=== PATIENT | male | born 1960 | race Caucasian/White ===

== ENCOUNTER → 2017-07-04 | Outpatient (CLI) | payer OTHER ==
--- NOTE | 2017-07-04 11:32 | CT ---
EXAMINATION TYPE: CT abdomen pelvis wo con DATE OF EXAM: 07/04/2017 HISTORY: Pre OP surgery for tissue removal per patient. Hematuria and flank pain per order. CT DLP: 2623.3 mGycm. Automated Exposure Control for Dose Reduction was Utilized. TECHNIQUE: CT scan of the abdomen and pelvis is performed without oral or IV contrast. COMPARISON: NONE FINDINGS: Within the limitations of a non-contrast study, the following observations are made. LUNG BASES: There is calcified 1.1 cm nodule or granuloma posteriorly in the left lung base. There is some calcification at level of aortic and mitral valve leaflets. LIVER/GB: Colonic interposition anterior to the liver is noted. PANCREAS: No significant abnormality is seen. SPLEEN: There are some scattered calcifications throughout the spleen, findings consistent with produ ct of old granulomatous disease. ADRENALS: Low dense nodular thickening to both adrenal glands favors benign hyperplasia KIDNEYS: There are 3-4 scattered calculi throughout left kidney measuring 3 mm or smaller in size. No hydronephrosis or obstructing left ureter calculi are clearly seen. No right-sided renal calculi or hydronephrosis is present. No intraluminal calculi and bladder are seen. Calcifications along course of the vas deferens bilaterally is noted. There is mild perinephric fat stranding in both kidneys pablo aterally, this is nonspecific finding and most likely on basis of product of chronic medical renal di sease in patient this age. BOWEL: There is some redundancy of the sigmoid colon. There is no suspicious small or large bowel dil atation. There is wondering cecum identified anteriorly right midabdomen near axial image [address] ileum felt present seen best on coronal image 40. No inflammatory change at base of cecum is cl early identified. GENITAL ORGANS: No gross abnormality seen. LYMPH NODES: No greater than 1cm abdominal or pelvic lymph nodes are appreciated. OSSEOUS STRUCTURES: Spine is straightened. There is fairly moderate multilevel spurring in the visual ized spine. OTHER: No significant additional abnormality is seen. IMPRESSION: Small left-sided renal calculi. No hydronephrosis or obstructing renal calculi are clearl y seen bilaterally. Wondering cecum noted without bowel obstruction or suspicious dilatation.
[2017-07-04 11:47] LABS: HCT 42.1 % (39.0-53.0); HGB 13.8 gm/dL (13.0-17.5); MCHC 32.7 g/dL (31.0-37.0); MCV 91.6 fL (80.0-100.0); Mean Platelet Volume 6.5; Platelet Count 250 k/uL (150-450); RDW 13.6 % (11.5-15.5); WBC 6.7 k/uL (3.8-10.6)
[2017-07-04 12:24] LABS: ALT 29 U/L (21-72); AST 24 U/L (17-59); Albumin 3.8 g/dL (3.5-5.0); Alkaline Phosphatase 84 U/L (38-126); Anion Gap 11 mmol/L; Blood Urea Nitrogen 27 mg/dL (9-20); Calcium 9.5 mg/dL (8.4-10.2); Carbon Dioxide 27 mmol/L (22-30); Chloride 106 mmol/L (98-107); Cholesterol 135 mg/dL (<200); Glucose 136 mg/dL (74-99); HDL Cholesterol 39 mg/dL (40-60); LDL Cholesterol,Calculated 59 mg/dL (0-99); Magnesium 2.1 mg/dL (1.6-2.3); Potassium 4.7 mmol/L (3.5-5.1); Sodium 144 mmol/L (137-145); Total Bilirubin 0.3 mg/dL (0.2-1.3); Total Protein 6.6 g/dL (6.3-8.2); Triglycerides 183 mg/dL (<150)
[2017-07-04 12:31] LABS: INR 0.9 (<1.2); Prothrombin Time 9.4 sec (9.0-12.0)
[2017-07-04 12:32] LABS: Partial Thromboplastin Time 20.5 sec (22.0-30.0)
[2017-07-04 12:40] VITALS: BP 129/77; PULSE 83; TEMP 98.5; BMI 43.0
[2017-07-04 16:47] LABS: Parathyroid Hormone Intact 44.6 pg/mL (14.0-72.0)
[2017-07-04 17:06] LABS: Iron Saturation 23.14 (15.00-50.00)
[2017-07-04 17:15] LABS: Vitamin D 25 Hydroxy 48.7 ng/mL (30.0-100.0)
[2017-07-04 17:41] LABS: Folate, Serum 16.1 ng/mL
[2017-07-04 19:11] LABS: Hemoglobin A1C 5.9 % (4.0-6.0)
[2017-07-05 12:50] LABS: Zinc, Serum 76 ug/dL (60-130)
[2017-07-08 06:08] LABS: Vitamin A 75 ug/dL (38-106)
[2017-07-08 06:16] LABS: Vitamin B1 68 ug/L (38-122)
[2017-07-09 19:54] LABS: Selenium 148 mcg/L (63-160)
--- NOTE | 2017-07-21 20:29 | P.HPBAR ---
Bariatric H&P - History & Physicial H&P Date: 07/04/17 History & Physicial: Visit/CC: Patient initial contact: Initial weight: Initial weight in pounds: Height: Initial BMI: Last weight: Current weight: Current weight in pounds: Current BMI: [place] body weight (based on NIH guidelines): Excess body weight loss: The patient is a 56 year-old M who presents for Bariatric Assessment. DATE OF SERVICE: 07/04/2017 REASON FOR CONSULTATION: Panniculectomy HISTORY OF PRESENT ILLNESS: Moustapha Dawkins is a 57-year-old male who comes in with long-standing morbid obesity. He had a sleeve gastrectomy April 03, 2016 in [place], [place]. His highest weight was 529 pounds. His lowest weight was 287 pounds. He now comes in 304 pounds. He has gained 17 pounds. He is more than 1 year out. He comes in with problems of his pannus. His pannus reaches beyond his knees. He reports severe lower back pain and multiple chronic severe ulcerations from his pannus to groin and thighs. As a result, he has difficulty with walking from weight and size of his pannus. He has traveled 3 hours for evaluation of his panniculectomy. He also sees a pain specialist for his chronic back pain as result of his pannus. At height of 5 feet 10.5 inches, his ideal body weight is 173 pounds. His highest weight was 529 pounds. He comes in 304 pounds. His body mass index was 75.0 down to 43.1. He is 131 pounds overweight. His percent excess weight loss is 63%. He has personally lost 225 pounds. PAST MEDICAL HISTORY: 1. Morbid obesity. 2. Body mass index of 75, initial. 3. Osteoarthritis of the knees. 4. Osteoarthritis of the hips. 5. Osteoarthritis of the lower back. 6. Obstructive sleep apnea. 7. Hypertensive heart disease. 8. Hyperlipidemia 9. Diabetes type 2, insulin-dependent PAST SURGICAL HISTORY: 1. Sleeve gastrectomy. 2. Eye surgery as a child HOME MEDICATIONS: 1. Lipitor 2. Ultram 3. Multivitamin 4. Vitamin D 5. Insulin 6. Metformin ALLERGIES: Denies. SOCIAL HISTORY: No active tobacco use. FAMILY HISTORY: No family history of ulcerative colitis disease or Crohn's disease. Family history of morbid obesity. No lupus in the family. No reports of stomach or esophageal cancer. Family history of diabetes type 2. REVIEW OF ORGAN SYSTEMS: CONSTITUTIONAL: At height of 5 feet 10.5 inches, his ideal body weight is 173 pounds. His highest weight was 529 pounds. He comes in 304 pounds. His body mass index was 75.0 down to 43.1. He is 131 pounds overweight. His percent excess weight loss is 63%. He has personally lost 225 pounds. His lowest weight was 287 pounds. He now comes in 304 pounds. He has gained 17 pounds. HEENT: Denies any active troubles with vision or hearing. No troubles with swallowing. ENDOCRINE: Was insulin diabetic, now on oral hypoglycemics. No hypothyroidism. CARDIOVASCULAR: No reports of palpitations or heart attacks or chest pain. RESPIRATORY: Has daytime somnolence. No asthma. Obstructive sleep apnea resolved. GI: Denies any bright red blood per rectum. No diarrhea or constipation. MUSCULOSKELETAL: Has lower back pain and joint pain. Has osteoarthritis of the knees. NEURO: No headaches. No seizure disorders. Has chronic pain syndrome. PSYCH: No depression or suicidal ideation. RHEUMATOLOGIC: No lupus. No rheumatoid arthritis. HEMATOLOGIC: Denies any abnormal bleeding or bruising. No personal history of DVTs. SKIN: No skin cancer. Severe panniculitis. PHYSICAL EXAM: VITAL SIGNS: Height 5 foot 10.5 inches, weight 304 pounds. BMI 43.1 Vital Signs Temp 98.5 F 07/04/17 12:32 Pulse 83 07/04/17 12:32 Resp BP 129/77 07/04/17 12:32 Pulse Ox GENERAL: Well-developed in no acute distress. HEENT: No scleral icterus. Extraocular movements grossly intact. Hears conversational speech. No nasal drainage. NECK: Supple without lymphadenopathy. CHEST: Nonlabored respirations with equal bilateral excursions. CARDIOVASCULAR: Regular rate and regular rhythm. Distal 2+ pulses. ABDOMEN: Obese, soft, nontender, nondistended. Pannus extends beyond knees. Weight of pannus over 40+ pounds. Possible incisional hernia. MUSCULOSKELETAL: No clubbing, cyanosis. Gross strength 5/5 distal lower extremities. 2+ pre-tibial pitting edema. NEURO: No focal or lateralizing signs. Cranial nerves 2 through 12 grossly within normal limits. PSYCH: Appropriate affect. Alert and oriented to person, place and time. SKIN: Good skin turgor. Well perfused. ASSESSMENT: 1. Morbid obesity. 2. Body mass index of 75, initial. 3. Osteoarthritis of the knees. 4. Osteoarthritis of the hips. 5. Osteoarthritis of the lower back. 6. Obstructive sleep apnea. 7. Hypertensive heart disease. 8. Hyperlipidemia 9. Diabetes type 2, insulin-dependent 10. Panniculitis. 11. Status post massive weight loss, 225 pounds. PLAN: 1. Recommend bariatric metabolic panel 2. Recommend correction of nutritional deficiencies 3. He has a moderate-sized pannus with functional debility. Recommend panniculectomy. 4. Recommend CT of the abdomen and pelvis to evaluate for loss of domain. 5. DVT prophylaxis. 6. Antibiotic prophylaxis. Thank you for this consultation. Laboratory Last Values WBC 6.7 k/uL (3.8-10.6) 07/04/17 11: RBC 4.60 m/uL (4.30-5.90) 07/04/17 11:29 Hgb 13.8 gm/dL (13.0-17.5) 07/04/17 11: Hct 42.1 % (39.0-53.0) 07/04/17 11: MCV 91.6 fL (80.0-100.0) 07/04/17 11: MCH 30.0 pg (25.0-35.0) 07/04/17 11: MCHC 32.7 g/dL (31.0-37.0) 07/04/17 11:29 RDW 13.6 % (11.5-15.5) 07/04/17 11:29 Plt Count 250 k/uL (150-450) 07/04/17 11: PT 9.4 sec (9.0-12.0) 07/04/17 11: INR 0.9 (<1.2) 07/04/17 11:29 APTT 20.5 sec (22.0-30.0) L 07/04/17 11:29 Sodium 144 mmol/L (137-145) 07/04/17 11:29 Potassium 4.7 mmol/L (3.5-5.1) 07/04/17 11:29 Chloride 106 mmol/L (98-107) 07/04/17 11:29 Carbon Dioxide 27 mmol/L (22-30) 07/04/17 11:29 Anion Gap 11 mmol/L 07/04/17 11:29 BUN 27 mg/dL (9-20) H 07/04/17 11:29 Creatinine 1.00 mg/dL (0.66-1.25) 07/04/17 11:29 Est GFR (CKD-EPI)AfAm >90 (>60 ml/min/1.73 sqM) 07/04/17 11:29 Est GFR (CKD-EPI)NonAf 83 (>60 ml/min/1.73 sqM) 07/04/17 11:29 Glucose 136 mg/dL (74-99) H 07/04/17 11:[address] Glu mg/dL 123 07/04/17 11:29 Hemoglobin A1c 5.9 % (4.0-6.0) 07/04/17 11:29 Calcium 9.5 mg/dL (8.4-10.2) 07/04/17 11:29 Phosphorus 4.0 mg/dL (2.5-4.5) 07/04/17 11:29 Magnesium 2.1 mg/dL (1.6-2.3) 07/04/17 11:29 Iron 59 ug/dL (65-175) L 07/04/17 11:29 TIBC 255 ug/dL (228-460) 07/04/17 11:29 Iron Saturation 23.14 (15.00-50.00) 07/04/17 11: Ferritin 237.9 ng/mL (22.0-322.0) 07/04/17 11:29 Total Bilirubin 0.3 mg/dL (0.2-1.3) 07/04/17 11:29 AST 24 U/L (17-59) 07/04/17 11:29 ALT 29 U/L (21-72) 07/04/17 11:29 Alkaline Phosphatase 84 U/L (38-126) 07/04/17 11:29 Total Protein 6.6 g/dL (6.3-8.2) 07/04/17 11:29 Albumin 3.8 g/dL (3.5-5.0) 07/04/17 11:29 Prealbumin 28.0 mg/dL (18.0-42.0) 07/04/17 11:29 Triglycerides 183 mg/dL (<150) H 07/04/17 11:29 Cholesterol 135 mg/dL (<200) 07/04/17 11:29 LDL Cholesterol, Calc 59 mg/dL (0-99) 07/04/17 11:29 HDL Cholesterol 39 mg/dL (40-60) L 07/04/17 11:29 Vitamin A 75 ug/dL (38-106) 07/04/17 11:29 Vitamin B1 68 ug/L (38-122) 07/04/17 11:29 Vitamin B12 551.0 pg/mL (200.0-944.0) 07/04/17 11:29 Vitamin D 25-Hydroxy 48.7 ng/mL (30.0-100.0) 07/04/17 11:29 Folate 16.1 ng/mL 07/04/17 11:29 TSH 1.710 mIU/L (0.465-4.680) 07/04/17 11:29 PTH Intact 44.6 pg/mL (14.0-72.0) 07/04/17 11:29 Copper 1097 ug/L (665-1480) 07/04/17 11:29 Selenium 148 mcg/L (63-160) 07/04/17 11:29 Zinc 76 ug/dL (60-130) 07/04/17 11:29 Iron is low Triglycerides elevated HDL low Recommend correction of iron deficiency Past Medical History Past Medical History: Diabetes Mellitus History of Any Multi-Drug Resistant Organisms: None Reported Past Surgical History: Bariatric Surgery Additional Past Surgical History / Comment(s): sleeve gastrectomy 1-17 eye surgery as a child Past Anesthesia/Blood Transfusion Reactions: No Reported Reaction Past Psychological History: No Psychological Hx Reported Smoking Status: Never smoker Past Alcohol Use History: None Reported Past Drug Use History: None Reported Results - Labs 07/04/17 11:29 07/04/17 11:29 Bariatric Checklist Checklist: Plan: Checklist: EGD: 1. Hiatal hernia: 2. H. Pylori: HgbA1c: Vitamin D: Smoking: Never smoker Primary care physician referral: Psychiatry clearance: Cardiology clearance: Sleep study: Diet journal: VTE risk score: VTE risk level: Rehab needs at discharge:
== END | disposition home or self-care (01) ==
LOC: BARWHC3 09:19
PROVIDERS: ATTEND Surgery Plastic and Reconstructive Surgery
DX: Z09 Encounter for follow-up examination after completed treatment for conditions other than malignant neoplasm (principal); E66.01 Morbid (severe) obesity due to excess calories; N20.0 Calculus of kidney; M54.5 Low back pain; E11.622 Type 2 diabetes mellitus with other skin ulcer; L97.109 Non-pressure chronic ulcer of unspecified thigh with unspecified severity; M17.0 Bilateral primary osteoarthritis of knee; M16.0 Bilateral primary osteoarthritis of hip; M47.9 Spondylosis, unspecified; G47.33 Obstructive sleep apnea (adult) (pediatric); I11.9 Hypertensive heart disease without heart failure; G89.29 Other chronic pain; E78.5 Hyperlipidemia, unspecified; R63.4 Abnormal weight loss; E21.1 Secondary hyperparathyroidism, not elsewhere classified; E89.1 Postprocedural hypoinsulinemia; D50.9 Iron deficiency anemia, unspecified; K90.9 Intestinal malabsorption, unspecified; E55.9 Vitamin D deficiency, unspecified; K74.1 Hepatic sclerosis; N19 Unspecified kidney failure; K50.90 Crohn's disease, unspecified, without complications; Z98.84 Bariatric surgery status; Z79.84 Long term (current) use of oral hypoglycemic drugs; Z79.4 Long term (current) use of insulin; Z79.899 Other long term (current) drug therapy; Z68.45 Body mass index [BMI] 70 or greater, adult
CPT/HCPCS: 84255; 84134; 84425; 80061; 80053; 82607; 82728; 82525; 82746; 83540; 83550; 83735; 84100; 84443; 84590; 84630; 85027; 85610; 85730; 82306; 83970; 83036; 74176; G0463; 99201

== ENCOUNTER → 2017-08-28 | Outpatient (CLI) | payer OTHER ==
[2017-08-28 14:56] VITALS: BP 157/70; PULSE 94; RESP 16; TEMP 98.1; BMI 43.7
--- NOTE | 2017-08-28 15:27 | P.PN ---
Subjective Progress Note Date: 08/28/17 DATE OF SERVICE: 08/28/2017 CHIEF COMPLAINT: Panniculectomy HISTORY OF PRESENT ILLNESS: Moustapha Dawkins is a 57-year-old male who comes in with long-standing morbid obesity. He had a sleeve gastrectomy April 03, 2016 in [place], [place]. His highest weight was 529 pounds. His lowest weight was 287 pounds. He now comes in 304 pounds. He has gained 17 pounds. He is more than 1 year out. Weight of 309 pounds. PLAN: 1. Went over panniculectomy 2. 2 week protein diet 3. 4+ hr surgery for anticipated 4. Staying 2 nights. DATE OF SERVICE: 07/04/2017 REASON FOR CONSULTATION: Panniculectomy HISTORY OF PRESENT ILLNESS: Moustapha Dawkins is a 57-year-old male who comes in with long-standing morbid obesity. He had a sleeve gastrectomy April 03, 2016 in [place], [place]. His highest weight was 529 pounds. His lowest weight was 287 pounds. He now comes in 304 pounds. He has gained 17 pounds. He is more than 1 year out. He comes in with problems of his pannus. His pannus reaches beyond his knees. He reports severe lower back pain and multiple chronic severe ulcerations from his pannus to groin and thighs. As a result, he has difficulty with walking from weight and size of his pannus. He has traveled 3 hours for evaluation of his panniculectomy. He also sees a pain specialist for his chronic back pain as result of his pannus. At height of 5 feet 10.5 inches, his ideal body weight is 173 pounds. His highest weight was 529 pounds. He comes in 304 pounds. His body mass index was 75.0 down to 43.1. He is 131 pounds overweight. His percent excess weight loss is 63%. He has personally lost 225 pounds. PAST MEDICAL HISTORY: 1. Morbid obesity. 2. Body mass index of 75, initial. 3. Osteoarthritis of the knees. 4. Osteoarthritis of the hips. 5. Osteoarthritis of the lower back. 6. Obstructive sleep apnea. 7. Hypertensive heart disease. 8. Hyperlipidemia 9. Diabetes type 2, insulin-dependent PAST SURGICAL HISTORY: 1. Sleeve gastrectomy. 2. Eye surgery as a child HOME MEDICATIONS: 1. Lipitor 2. Ultram 3. Multivitamin 4. Vitamin D 5. Insulin 6. Metformin ALLERGIES: Denies. SOCIAL HISTORY: No active tobacco use. FAMILY HISTORY: No family history of ulcerative colitis disease or Crohn's disease. Family history of morbid obesity. No lupus in the family. No reports of stomach or esophageal cancer. Family history of diabetes type 2. REVIEW OF ORGAN SYSTEMS: CONSTITUTIONAL: At height of 5 feet 10.5 inches, his ideal body weight is 173 pounds. His highest weight was 529 pounds. He comes in 304 pounds. His body mass index was 75.0 down to 43.1. He is 131 pounds overweight. His percent excess weight loss is 63%. He has personally lost 225 pounds. His lowest weight was 287 pounds. He now comes in 304 pounds. He has gained 17 pounds. HEENT: Denies any active troubles with vision or hearing. No troubles with swallowing. ENDOCRINE: Was insulin diabetic, now on oral hypoglycemics. No hypothyroidism. CARDIOVASCULAR: No reports of palpitations or heart attacks or chest pain. RESPIRATORY: Has daytime somnolence. No asthma. Obstructive sleep apnea resolved. GI: Denies any bright red blood per rectum. No diarrhea or constipation. MUSCULOSKELETAL: Has lower back pain and joint pain. Has osteoarthritis of the knees. NEURO: No headaches. No seizure disorders. Has chronic pain syndrome. PSYCH: No depression or suicidal ideation. RHEUMATOLOGIC: No lupus. No rheumatoid arthritis. HEMATOLOGIC: Denies any abnormal bleeding or bruising. No personal history of DVTs. SKIN: No skin cancer. Severe panniculitis. PHYSICAL EXAM: VITAL SIGNS: Height 5 foot 10.5 inches, weight 304 pounds. BMI 43.1 Vital Signs Temp 98.5 F 07/04/17 12:32 Pulse 83 07/04/17 12:32 Resp BP 129/77 07/04/17 12:32 Pulse Ox GENERAL: Well-developed in no acute distress. HEENT: No scleral icterus. Extraocular movements grossly intact. Hears conversational speech. No nasal drainage. NECK: Supple without lymphadenopathy. CHEST: Nonlabored respirations with equal bilateral excursions. CARDIOVASCULAR: Regular rate and regular rhythm. Distal 2+ pulses. ABDOMEN: Obese, soft, nontender, nondistended. Pannus extends beyond knees. Weight of pannus over 40+ pounds. Possible incisional hernia. MUSCULOSKELETAL: No clubbing, cyanosis. Gross strength 5/5 distal lower extremities. 2+ pre-tibial pitting edema. NEURO: No focal or lateralizing signs. Cranial nerves 2 through 12 grossly within normal limits. PSYCH: Appropriate affect. Alert and oriented to person, place and time. SKIN: Good skin turgor. Well perfused. ASSESSMENT: 1. Morbid obesity. 2. Body mass index of 75, initial. 3. Osteoarthritis of the knees. 4. Osteoarthritis of the hips. 5. Osteoarthritis of the lower back. 6. Obstructive sleep apnea. 7. Hypertensive heart disease. 8. Hyperlipidemia 9. Diabetes type 2, insulin-dependent 10. Panniculitis. 11. Status post massive weight loss, 225 pounds. PLAN: 1. Recommend bariatric metabolic panel 2. Recommend correction of nutritional deficiencies 3. He has a moderate-sized pannus with functional debility. Recommend panniculectomy. 4. Recommend CT of the abdomen and pelvis to evaluate for loss of domain. 5. DVT prophylaxis. 6. Antibiotic prophylaxis. Thank you for this consultation. Laboratory Last Values WBC 6.7 k/uL (3.8-10.6) 07/04/17 11: RBC 4.60 m/uL (4.30-5.90) 07/04/17 11:29 Hgb 13.8 gm/dL (13.0-17.5) 07/04/17 11: Hct 42.1 % (39.0-53.0) 07/04/17 11: MCV 91.6 fL (80.0-100.0) 07/04/17 11:29 MCH 30.0 pg (25.0-35.0) 07/04/17 11:29 MCHC 32.7 g/dL (31.0-37.0) 07/04/17 11: RDW 13.6 % (11.5-15.5) 07/04/17 11:29 Plt Count 250 k/uL (150-450) 07/04/17 11: PT 9.4 sec (9.0-12.0) 07/04/17 11:29 INR 0.9 (<1.2) 07/04/17 11:29 APTT 20.5 sec (22.0-30.0) L 07/04/17 11:29 Sodium 144 mmol/L (137-145) 07/04/17 11:29 Potassium 4.7 mmol/L (3.5-5.1) 07/04/17 11:29 Chloride 106 mmol/L (98-107) 07/04/17 11:29 Carbon Dioxide 27 mmol/L (22-30) 07/04/17 11:29 Anion Gap 11 mmol/L 07/04/17 11:29 BUN 27 mg/dL (9-20) H 07/04/17 11:29 Creatinine 1.00 mg/dL (0.66-1.25) 07/04/17 11:29 Est GFR (CKD-EPI)AfAm >90 (>60 ml/min/1.73 sqM) 07/04/17 11:29 Est GFR (CKD-EPI)NonAf 83 (>60 ml/min/1.73 sqM) 07/04/17 11:29 Glucose 136 mg/dL (74-99) H 07/04/17 11:[address] Glu mg/dL 123 07/04/17 11:29 Hemoglobin A1c 5.9 % (4.0-6.0) 07/04/17 11:29 Calcium 9.5 mg/dL (8.4-10.2) 07/04/17 11: Phosphorus 4.0 mg/dL (2.5-4.5) 07/04/17 11: Magnesium 2.1 mg/dL (1.6-2.3) 07/04/17 11:29 Iron 59 ug/dL (65-175) L 07/04/17 11:29 TIBC 255 ug/dL (228-460) 07/04/17 11:29 Iron Saturation 23.14 (15.00-50.00) 07/04/17 11: Ferritin 237.9 ng/mL (22.0-322.0) 07/04/17 11:29 Total Bilirubin 0.3 mg/dL (0.2-1.3) 07/04/17 11:29 AST 24 U/L (17-59) 07/04/17 11:29 ALT 29 U/L (21-72) 07/04/17 11:29 Alkaline Phosphatase 84 U/L (38-126) 07/04/17 11:29 Total Protein 6.6 g/dL (6.3-8.2) 07/04/17 11: Albumin 3.8 g/dL (3.5-5.0) 07/04/17 11: Prealbumin 28.0 mg/dL (18.0-42.0) 07/04/17 11: Triglycerides 183 mg/dL (<150) H 07/04/17 11: Cholesterol 135 mg/dL (<200) 07/04/17 11:29 LDL Cholesterol, Calc 59 mg/dL (0-99) 07/04/17 11: HDL Cholesterol 39 mg/dL (40-60) L 07/04/17 11: Vitamin A 75 ug/dL (38-106) 07/04/17: Vitamin B1 68 ug/L (38-122) 07/04/17: Vitamin B12 551.0 pg/mL (200.0-944.0) 07/04/17 11: Vitamin D 25-Hydroxy 48.7 ng/mL (30.0-100.0) 07/04/17 11: Folate 16.1 ng/mL 07/04/17 11: TSH 1.710 mIU/L (0.465-4.680) 07/04/17 11: PTH Intact 44.6 pg/mL (14.0-72.0) 07/04/17: Copper 1097 ug/L (665-1480) 07/04/17 11: Selenium 148 mcg/L (63-160) 07/04/17 11: Zinc 76 ug/dL (60-130) 07/04/17 11: Iron is low Triglycerides elevated HDL low Recommend correction of iron deficiency
== END | disposition home or self-care (01) ==
LOC: BARWHC3 14:07
PROVIDERS: ATTEND Surgery Plastic and Reconstructive Surgery
DX: Z09 Encounter for follow-up examination after completed treatment for conditions other than malignant neoplasm (principal); E66.01 Morbid (severe) obesity due to excess calories; M79.3 Panniculitis, unspecified; M17.0 Bilateral primary osteoarthritis of knee; M16.0 Bilateral primary osteoarthritis of hip; M54.5 Low back pain; G89.29 Other chronic pain; M47.9 Spondylosis, unspecified; G47.33 Obstructive sleep apnea (adult) (pediatric); I11.9 Hypertensive heart disease without heart failure; E78.5 Hyperlipidemia, unspecified; E11.9 Type 2 diabetes mellitus without complications; R63.4 Abnormal weight loss; Z79.4 Long term (current) use of insulin; Z98.84 Bariatric surgery status; Z79.84 Long term (current) use of oral hypoglycemic drugs; Z68.41 Body mass index [BMI] 40.0-44.9, adult; Z79.899 Other long term (current) drug therapy
CPT/HCPCS: 99211

== ENCOUNTER 2017-10-28 09:22 | Inpatient (IN) | payer OTHER ==
[2017-10-17 09:09] VITALS: BMI 58.1
--- NOTE | 2017-10-28 07:23 | P.GSHP ---
History of Present Illness H&P Date: 10/28/17 DATE OF SERVICE: 10/28/2017 CHIEF COMPLAINT: Panniculectomy HISTORY OF PRESENT ILLNESS: Moustapha Dawkins is a 57-year-old male who comes in with long-standing morbid obesity. He had a sleeve gastrectomy April 03, 2016 in [place], [place]. His highest weight was 529 pounds. His lowest weight was 287 pounds. He now comes in 307 pounds from 309 pounds, 2 months ago. He has gained 20 pounds in the last 1.5 years out. At height of 5 feet 10.5 inches, his ideal body weight is 173 pounds. His highest weight was 529 pounds. He comes in 307 pounds. His body mass index was 75.0 down to 43.8. He is 134 pounds overweight. His percent excess weight loss is 62%. He has personally lost 222 pounds. PAST MEDICAL HISTORY: 1. Morbid obesity. 2. Body mass index of 75, initial. 3. Osteoarthritis of the knees. 4. Osteoarthritis of the hips. 5. Osteoarthritis of the lower back. 6. Obstructive sleep apnea. 7. Hypertensive heart disease. 8. Hyperlipidemia 9. Diabetes type 2, insulin-dependent PAST SURGICAL HISTORY: 1. Sleeve gastrectomy. 2. Eye surgery as a child HOME MEDICATIONS: 1. Lipitor 2. Ultram 3. Multivitamin 4. Vitamin D 5. Insulin 6. Metformin ALLERGIES: Denies. SOCIAL HISTORY: No active tobacco use. FAMILY HISTORY: No family history of ulcerative colitis disease or Crohn's disease. Family history of morbid obesity. No lupus in the family. No reports of stomach or esophageal cancer. Family history of diabetes type 2. REVIEW OF ORGAN SYSTEMS: CONSTITUTIONAL: At height of 5 feet 10.5 inches, his ideal body weight is 173 pounds. His highest weight was 529 pounds. He comes in 304 pounds. His body mass index was 75.0 down to 43.1. He is 131 pounds overweight. His percent excess weight loss is 63%. He has personally lost 225 pounds. His lowest weight was 287 pounds. He now comes in 304 pounds. He has gained 17 pounds. HEENT: Denies any active troubles with vision or hearing. No troubles with swallowing. ENDOCRINE: Was insulin diabetic, now on oral hypoglycemics. No hypothyroidism. CARDIOVASCULAR: No reports of palpitations or heart attacks or chest pain. RESPIRATORY: Has daytime somnolence. No asthma. Obstructive sleep apnea resolved. GI: Denies any bright red blood per rectum. No diarrhea or constipation. MUSCULOSKELETAL: Has lower back pain and joint pain. Has osteoarthritis of the knees. NEURO: No headaches. No seizure disorders. Has chronic pain syndrome. PSYCH: No depression or suicidal ideation. RHEUMATOLOGIC: No lupus. No rheumatoid arthritis. HEMATOLOGIC: Denies any abnormal bleeding or bruising. No personal history of DVTs. SKIN: No skin cancer. Severe panniculitis. PHYSICAL EXAM: VITAL SIGNS: Height 5 foot 10.5 inches, weight 307 pounds. BMI 43.8 Temp 98.1 F 08/28/17 14:51 Pulse 94 08/28/17 14:51 Resp 16 08/28/17 14:51 BP 157/70 08/28/17 14:51 Pulse Ox GENERAL: Well-developed in no acute distress. HEENT: No scleral icterus. Extraocular movements grossly intact. Hears conversational speech. No nasal drainage. NECK: Supple without lymphadenopathy. CHEST: Nonlabored respirations with equal bilateral excursions. CARDIOVASCULAR: Regular rate and regular rhythm. Distal 2+ pulses. ABDOMEN: Obese, soft, nontender, nondistended. Pannus extends beyond knees. Weight of pannus over 40+ pounds. Possible incisional hernia. MUSCULOSKELETAL: No clubbing, cyanosis. Gross strength 5/5 distal lower extremities. 2+ pre-tibial pitting edema. NEURO: No focal or lateralizing signs. Cranial nerves 2 through 12 grossly within normal limits. PSYCH: Appropriate affect. Alert and oriented to person, place and time. SKIN: Good skin turgor. Well perfused. ASSESSMENT: 1. Morbid obesity. 2. Body mass index of 75, initial. 3. Osteoarthritis of the knees. 4. Osteoarthritis of the hips. 5. Osteoarthritis of the lower back. 6. Obstructive sleep apnea. 7. Hypertensive heart disease. 8. Hyperlipidemia 9. Diabetes type 2, insulin-dependent 10. Panniculitis. 11. Status post massive weight loss, 225 pounds. 12. Iron deficiency anemia PLAN: 1. Benefits and risks of panniculectomy was reviewed in detail. 2. Timeframe of surgery of 4+ hr anticipated 3. Recommend inpatient hospitalization for 2 nights. 4. Cardiac risk assessment was advised prior to surgery. 5. Two-week high-protein low calorie diet advised for wound healing. Past Medical History Past Medical History: Diabetes Mellitus, Hyperlipidemia Additional Past Medical History / Comment(s): vitamin D deficiency History of Any Multi-Drug Resistant Organisms: None Reported Past Surgical History: Bariatric Surgery Additional Past Surgical History / Comment(s): gastric sleeve 03/2016, eye surgery as child Past Anesthesia/Blood Transfusion Reactions: Postoperative Nausea & Vomiting ( PONV) Smoking Status: Never smoker - Past Family History Brother(s) Family Medical History: Pulmonary Embolus Medications and Allergies Home Medications Medication Instructions Recorded Confirmed Type Atorvastatin [Lipitor] 20 mg PO HS 07/04/17 10/17/17 History Ergocalciferol (Vitamin D2) 100,000 unit PO MOTH 07/04/17 10/17/17 History [Vitamin D2] Multivitamin [Men's Multi-Vitamin] 2 tab PO DAILY 07/04/17 10/17/17 History metFORMIN HCL [Glucophage] 500 mg PO BID 07/04/17 10/17/17 History traMADol HCL [Ultram] 50 mg PO Q8H PRN 07/04/17 10/17/17 History Cholecalciferol [Vitamin D3] 400 unit PO DAILY 08/28/17 10/17/17 History Cyanocobalamin (Vitamin B-12) 1,000 mcg PO DAILY 08/28/17 10/17/17 History [Vitamin B-12] Ferrous Sulfate [Feosol] 325 mg PO DAILY 08/28/17 10/17/17 History Insulin Aspart [NovoLOG Flexpen] 4 units SQ 1200,1800 10/17/17 10/17/17 History Insulin Glargine,Hum.rec.anlog 28 unit SQ QAM 10/17/17 10/17/17 History [Basaglar Kwikpen U-100] Allergies Allergy/AdvReac Type Severity Reaction Status Date / Time No Known Allergies Allergy Verified 10/17/17 08:56
[~2017-10-28 09:22] MED LIST: DEXAMETHASONE SOD PHOSPHATE 10 MG/ML 1 ML VIAL IV ONE; HYDROmorphone 0.5 MG/0.5 ML SYRINGE IVP PRN; LIDOCAINE 1% 20 ML VIAL (10MG/ML) FOR IV START INTRADERMA PRN; MIDAZOLAM 2 MG/2 ML VIAL IV PRN; ONDANSETRON 4 MG/2 ML VIAL IVP ONE; SCOPOLAMINE 1.5MG/72HR PATCH TRANSDERM ONE
[2017-10-28] MEDS: LACTATED RINGERS 1,000 ML IV SCH (11:05)
[2017-10-28 11:06] LABS: Glucose,Whole Blood 82 mg/dL (75-99)
[2017-10-28] MEDS ORDERED: HEPARIN SODIUM,PORCINE 5,000 UNIT/ML 1 ML VIAL IV STA (12:18)
[2017-10-28] MEDS ORDERED: GLYCOPYRROLATE 0.2 MG/ML 2 ML VIAL ONE (12:54)
[2017-10-28] MEDS ORDERED: ROCURONIUM BROMIDE 10 MG/ML 10 ML VIAL IV ONE (12:54)
[2017-10-28] MEDS ORDERED: HYDROmorphone (PF) 1 MG/ML ONE (12:54)
[2017-10-28] MEDS ORDERED: PROPOFOL 10 MG/ML 20 ML VIAL IV ONE (12:54)
[2017-10-28] MEDS ORDERED: MIDAZOLAM 2 MG/2 ML VIAL ONE (12:54)
[2017-10-28] MEDS ORDERED: ONDANSETRON 4 MG/2 ML VIAL ONE (12:54)
[2017-10-28] MEDS ORDERED: NEOSTIGMINE 1 MG/ML 10 ML VIAL ONE (12:54)
[2017-10-28] MEDS ORDERED: fentaNYL (PF) 50 MCG/ML 2 ML AMP ONE (12:54)
[2017-10-28] MEDS ORDERED: LACTATED RINGERS 1,000 ML IV ONE ×3 (13:50→18:09)
[2017-10-28] MEDS ORDERED: ONDANSETRON 4 MG/2 ML VIAL IVP PRN (17:15)
[2017-10-28] MEDS ORDERED: HYDROmorphone 1 MG/ML 1 ML SYRINGE IVP PRN (17:15)
--- NOTE | 2017-10-28 17:15 | P.PCN ---
Date of Procedure: 10/28/17 Preoperative Diagnosis: Panniculitis, status post massive weight loss Postoperative Diagnosis: Same, lipodystrophy Procedure(s) Performed: Panniculectomy with excision of 35.1 pounds excess pannus Anesthesia: ELVIE Surgeon: Em Lainez Estimated Blood Loss (ml): 500 Pathology: none sent Condition: stable Disposition: floor Operative Findings: 1. Repair of incarcerated umbilical hernia 3 cm fascial defect 2. Pannus is 35.1 pounds excised 3. Lipodystrophy confirmed upon removal of pannus
[2017-10-28] MEDS ORDERED: TRIMETHOBENZAMIDE 100 MG/ML 2 ML VIAL IM PRN ×2 (17:16)
[2017-10-28 17:28] LABS: Glucose,Whole Blood 241 mg/dL (75-99)
[2017-10-28] MEDS ORDERED: ONDANSETRON 4 MG/2 ML VIAL IVP ONE (17:29)
[2017-10-28] MEDS ORDERED: ceFAZolin 3 GM in SODIUM CHLORIDE 0.9% 100 ML IVPB SCH (17:30)
[2017-10-28] MEDS ORDERED: PROMETHAZINE INJ 25 MG/ML 1 ML VIAL IVPB ONE (17:42)
[2017-10-28] MEDS ORDERED: INSULIN ASPART 100 UNIT/ML 1 ML 10 ML VIAL SQ ONE (18:22)
[2017-10-28] MEDS: INSULIN ASPART 100 UNIT/ML 1 ML 10 ML VIAL SQ SCH (20:46)
[2017-10-28 20:56] LABS: Glucose,Whole Blood 194 mg/dL (75-99)
[2017-10-28] MEDS: HYDROcodone/APAP 5-325MG 1 EACH TAB PO SCH (21:00)
[2017-10-28] MEDS: ATORVASTATIN 20 MG TAB PO SCH (21:00)
[2017-10-28] MEDS: SODIUM CHLORIDE 0.9% 1,000 ML IV SCH (21:01)
--- NOTE | 2017-10-28 21:06 | P.OP ---
Date of Procedure: 10/28/17 Description of Procedure: SURGEON: MARIO GARCIA MD PREOPERATIVE DIAGNOSES: 1. Morbid obesity due to excess calories. 2. Body mass index of 75 to 43.6 3. Osteoarthritis of the knees. 4. Osteoarthritis of the hips. 5. Osteoarthritis of the lower back. 6. Obstructive sleep apnea. 7. Hypertensive heart disease. 8. Hyperlipidemia 9. Diabetes type 2, insulin-dependent 10. Panniculitis. 11. Status post massive weight loss, 225 pounds. 12. Iron deficiency anemia 13. Status post sleeve gastrectomy. 14. Central adiposity POSTOPERATIVE DIAGNOSES: 1. Morbid obesity due to excess calories. 2. Body mass index of 75 to 43.6 3. Osteoarthritis of the knees. 4. Osteoarthritis of the hips. 5. Osteoarthritis of the lower back. 6. Obstructive sleep apnea. 7. Hypertensive heart disease. 8. Hyperlipidemia 9. Diabetes type 2, insulin-dependent 10. Panniculitis. 11. Status post massive weight loss, 225 pounds. 12. Iron deficiency anemia 13. Status post sleeve gastrectomy. 14. Central adiposity 15. Lipohypertrophy OPERATION: 1. Panniculectomy, 35.1 pounds. ANESTHESIA: General ESTIMATED BLOOD LOSS: 500 mL SPECIMENS REMOVED: Pannus 35.1 pounds. COMPLICATIONS: None. CONDITION: Stable. DRAINS: Two #19 Jose Raul drains below abdominal flap extending through the pubis. OPERATIVE FINDINGS: 1. Pannus weighing 35.1 pounds, excised. INDICATIONS: Moustapha Dawkins is a 57-year-old male who comes in with long- standing morbid obesity. He had a sleeve gastrectomy April 03, 2016 in [place], [place]. His highest weight was 529 pounds. His lowest weight was 287 pounds. He now comes in 307 pounds from 309 pounds, 2 months ago. He has gained 20 pounds in the last 1.5 years out. At height of 5 feet 10.5 inches, his ideal body weight is 173 pounds. His highest weight was 529 pounds. He comes in 307 pounds. His body mass index was 75.0 down to 43.8. He is 134 pounds overweight. His percent excess weight loss is 62%. He has personally lost 222 pounds. He reports medically refractory panniculitis. Given his clinical symptoms, including massive weight loss, he elected for surgical intervention with a panniculectomy. Benefits and risks of the procedure including bleeding, infection, risk of flap failure, abdominal wall seromas, chronic pain were described at length. Informed consent was obtained. DESCRIPTION: In the preanesthesia care unit the patient was marked with an indelible marker. He had also been given heparin subcutaneously. The patient was brought into the operating room and laid in supine position. After general induction, a Zhang catheter was placed. The abdomen was then prepped and draped in standard sterile fashion using ChloraPrep. The skin was prepped as far laterally to the back, inferiorly to the upper thighs and superiorly to above the chest. A timeout protocol was confirmed with the surgical team regarding patient's name , procedure to be performed, including preoperative medications. He had received Ancef 3 grams IV antibiotics. Once the time-out protocol was confirmed with the surgical team, the patient was re-marked with indelible marker whereby the midline of the xiphoid to the pubis was marked. The anterior/superior iliac spine along the bilateral hips was also marked. Approximately 8 cm above the pubis, a transverse incision was made for the inferior portion of the flap. Using a #10 blade, the incision was taken from the midline laterally to above the anterior/superior iliac spine, initially on the left side of the patient and then on the right side of the patient. Electro-Bovie cautery was used to control for hemostasis. The dissection was taken down to the level of the fascia. Landmarks used were the xiphoid process as well as the bilateral costal margins for the superior margin. Care was taken to avoid any creation of dog ears during the dissection. Hemostasis was once again checked with electro-Bovie cautery and all defects were addressed. Attention was now brought to closure of the flap. Using stainless steel skin harrison, the midline was once again marked of the upper flap as well as the pubic commissure. The patient was placed in a flexed position of approximately 20 degrees at the hips. The pannus was extended inferiorly to the feet. The upper flap was created once the excess skin was excised. Again care was taken to avoid any dog ears along the lateral aspect of the incisions. Once excised, the pannus was weighed at 35.1 pounds. The upper and lower flaps were reapproximated at the midline and then laterally to the skin with skin harrison. Once reapproximated, the skin was closed in layers using 0 Vicryl for the superficial fascial system followed by running 3- 0 Monocryl for the deep dermis in a running subcuticular fashion. Prior to skin closure, two round #19 Jose Raul drains were placed underneath the flap and brought out just inferior to the incision along the pubis. Drain stitch using 2-0 nylon was placed. Once the incision was closed, bulb suction was attached. Hemostasis was checked. At the end of the procedure, the needle, sponge and instrument count was verified correct. Exofin tape was placed along the length of the incision. Optifoam dressings were applied over the incision and used as a drain sponge. The patient was then transferred to a hospital bed in a beach chair position. An abdominal binder was placed and marked. The patient was taken to the postanesthesia care unit in stable condition, awake and extubated. Total time for procedure from skin to skin was 194 minutes. The intraoperative findings were discussed with his family who was pleased with the level of care.
[2017-10-29 00:37] LABS: Glucose,Whole Blood 146 mg/dL (75-99)
[2017-10-29] MEDS: INSULIN ASPART 100 UNIT/ML 1 ML 10 ML VIAL SQ SCH ×4 (00:44→18:18)
[2017-10-29] MEDS: HYDROcodone/APAP 5-325MG 1 EACH TAB PO SCH ×6 (00:45→21:39)
[2017-10-29] MEDS: SODIUM CHLORIDE 0.9% 1,000 ML IV SCH ×2 (05:18→19:13)
[2017-10-29 05:56] LABS: Glucose,Whole Blood 137 mg/dL (75-99)
--- NOTE | 2017-10-29 10:00 | P.PN ---
<BrianAnnabella M - Last Filed: 10/29/17 09:49> Subjective Progress Note Date: 10/29/17 57-year-old male sitting at the bedside sitting up in bed patient stated that he a nausea sensation this morning after eating a piece of sausage with scrambled egg abdominal binder in place [address] Heart rate in the 90s to 100s afebrile room air sats 96% blood sugar this morning 137 Objective - Vital Signs Vital signs: Vital Signs Temp 98.7 F 10/29/17 08:31 Pulse 95 10/29/17 08:31 Resp 16 10/29/17 08:31 BP 113/64 10/29/17 08:31 Pulse Ox 96 10/29/17 08:31 Intake & Output 10/28/17 10/29/17 10/29/17 18:59 06:59 18:59 Intake Total 3050 2250 Output Total 870 335 Balance 2180 1915 Intake: IV 3050 Intake, IV Titration 1950 Amount Sodium Chloride 0.9% 1, 1800 000 ml @ 100 mls/hr IV . Q10H SANGEETA Rx#:[id number] ceFAZolin 3 gm In Sodium 150 Chloride 0.9% 50 ml @ 100 mls/hr IVPB Q8H SANGEETA Rx#: [id number] Oral 300 Output: Drainage 160 Left Abdomen 90 right abdomen 70 Urine 350 175 Estimated Blood Loss 520 Other: Voiding Method Indwelling Catheter - Exam Physical exam Pleasant 57 year male sitting up with an abdominal binder in place Lungs clear adequate air movement on room air sats 96-95% no shortness of breath Heart S1-S2 audible regular denying chest pain heart rate in the 90s Abdomen abdominal binder in place with 2 OSBALDO drains indwelling Zhang catheter in place reported a nausea sensation no active emesis states belching, passing gas Extremities Venodyne's on to the bilateral lower extremities - Labs Labs: Abnormal Lab Results - Last 24 Hours (Table) 10/28/17 10/28/17 10/29/17 Range/Units 17:24 20:54 00:29 POC Glucose (mg/dL) 241 H 194 H 146 H (75-99) mg/dL 10/29/17 Range/Units 05:54 POC Glucose (mg/dL) 137 H (75-99) mg/dL Assessment and Plan Assessment: Impression Panniculitis, status post massive weight loss Panniculectomy with excision of 35.1 pounds excess pannus Repair of incarcerated umbilical hernia 3 cm fascial defect Iron deficiency anemia Status post massive weight loss 225 pounds BMI of 75 down to 43 history of sleeve gastrectomy March 2016 [facility] Type 2 diabetes insulin requiring Plan Continue postop surgical care Do not remove the surgical abdominal binder Pain control DVT and GI prophylaxis Remove indwelling Zhang catheter Anticipate discharge soon The above impression and plan of care have been discussed and directed by signing physician. Annabella Torres nurse practitioner acting as scribe for signing physician. <Em Lainez N - Last Filed: 10/30/17 08:26> Objective - Vital Signs Vital signs: Vital Signs Temp 98.2 F 10/30/17 02:10 Pulse 90 10/30/17 02:10 Resp 16 10/30/17 02:10 BP 111/65 10/30/17 02:10 Pulse Ox 95 10/30/17 02:10 Intake & Output 10/29/17 10/30/17 10/30/17 18:59 06:59 18:59 Intake Total 2300 Output Total 400 200 Balance -400 2100 Intake: Intake, IV Titration 1600 Amount Sodium Chloride 0.9% 1, 1600 000 ml @ 100 mls/hr IV . Q10H SANGEETA Rx#:[id number] Oral 700 Output: Drainage 150 100 Left Abdomen 90 55 right abdomen 60 45 Urine 250 100 Uretheral (Zhang) 250 Other: Voiding Method Indwelling Catheter Toilet # Voids 3 - Labs CBC & Chem 7: 10/29/17 10:15 10/29/17 10:15 Labs: Abnormal Lab Results - Last 24 Hours (Table) 10/29/17 10/29/17 10/29/17 Range/Units 10:15 10:15 10:15 RBC 3.94 L (4.30-5.90) m/uL Hgb 11.8 L (13.0-17.5) gm/dL Hct 36.0 L (39.0-53.0) % Chloride 110 H (98-107) mmol/L Carbon Dioxide 21 L (22-30) mmol/L BUN 26 H (9-20) mg/dL Creatinine 1.50 H (0.66-1.25) mg/dL Glucose 150 H (74-99) mg/dL POC Glucose (mg/dL) (75-99) mg/dL Iron 9 L (65-175) ug/dL TIBC 182 L (228-460) ug/dL Iron Saturation 4.95 L (15.00-50.00) Ferritin 436.0 H (22.0-322.0) ng/mL 10/29/17 10/29/17 10/30/17 Range/Units 11:26 17:00 00:53 RBC (4.30-5.90) m/uL Hgb (13.0-17.5) gm/dL Hct (39.0-53.0) % Chloride (98-107) mmol/L Carbon Dioxide (22-30) mmol/L BUN (9-20) mg/dL Creatinine (0.66-1.25) mg/dL Glucose (74-99) mg/dL POC Glucose (mg/dL) 159 H 259 H 153 H (75-99) mg/dL Iron (65-175) ug/dL TIBC (228-460) ug/dL Iron Saturation (15.00-50.00) Ferritin (22.0-322.0) ng/mL 10/30/17 Range/Units 05:54 RBC (4.30-5.90) m/uL Hgb (13.0-17.5) gm/dL Hct (39.0-53.0) % Chloride (98-107) mmol/L Carbon Dioxide (22-30) mmol/L BUN (9-20) mg/dL Creatinine (0.66-1.25) mg/dL Glucose (74-99) mg/dL POC Glucose (mg/dL) 136 H (75-99) mg/dL Iron (65-175) ug/dL TIBC (228-460) ug/dL Iron Saturation (15.00-50.00) Ferritin (22.0-322.0) ng/mL
[2017-10-29] MEDS: LACTATED RINGERS 1,000 ML IV SCH (10:18)
[2017-10-29 10:30] LABS: HGB 11.8 gm/dL (13.0-17.5); MCH 30.1 pg (25.0-35.0); MCHC 32.9 g/dL (31.0-37.0); MCV 91.5 fL (80.0-100.0); Mean Platelet Volume 6.9; Platelet Count 242 k/uL (150-450); RBC 3.94 m/uL (4.30-5.90); RDW 13.5 % (11.5-15.5); WBC 9.9 k/uL (3.8-10.6)
[2017-10-29 10:43] LABS: Calcium 8.8 mg/dL (8.4-10.2); Potassium 4.7 mmol/L (3.5-5.1)
[2017-10-29 11:27] LABS: Glucose,Whole Blood 159 mg/dL (75-99)
[2017-10-29 17:06] LABS: Glucose,Whole Blood 259 mg/dL (75-99)
[2017-10-29 17:36] LABS: Iron Saturation 4.95 (15.00-50.00)
[2017-10-29] MEDS ORDERED: TAMSULOSIN 0.4 MG CAP.ER.24H PO STA (18:21)
[2017-10-29] MEDS: ATORVASTATIN 20 MG TAB PO SCH (21:39)
[2017-10-30 00:56] LABS: Glucose,Whole Blood 153 mg/dL (75-99)
[2017-10-30] MEDS: HYDROcodone/APAP 5-325MG 1 EACH TAB PO SCH ×3 (01:00→11:39)
[2017-10-30] MEDS: INSULIN ASPART 100 UNIT/ML 1 ML 10 ML VIAL SQ SCH ×2 (01:00→06:20)
[2017-10-30 03:19] VITALS: RESP 16
[2017-10-30 05:56] LABS: Glucose,Whole Blood 136 mg/dL (75-99)
[2017-10-30 08:56] VITALS: BP 110/68; PULSE 82; TEMP 98.4
[2017-10-30] MEDS ORDERED: SODIUM FERRIC GLUCONAT-SUCROSE 125 MG in SODIUM CHLORIDE 0.9% 100 ML IVPB SCH (09:00)
[2017-10-30] MEDS: LACTATED RINGERS 1,000 ML IV SCH (09:10)
--- NOTE | 2017-10-30 09:17 | P.DS ---
Providers Date of admission: 10/28/17 09:22 Expected date of discharge: 10/30/17 Attending physician: Em Lainez Primary care physician: Stated None - Discharge Diagnosis(es) (1) Morbid obesity with BMI of 40.0-44.9, adult Current Visit: Yes Status: Acute (2) S/P laparoscopic sleeve gastrectomy Current Visit: Yes Status: Acute (3) Diabetes type 2, controlled Current Visit: Yes Status: Acute (4) Hypertensive heart disease Current Visit: Yes Status: Acute (5) Hyperlipidemia Current Visit: Yes Status: Acute (6) Chronic iron deficiency anemia Current Visit: Yes Status: Acute (7) Benign prostatic hyperplasia (BPH) with straining on urination Current Visit: Yes Status: Acute (8) Panniculus adiposus Current Visit: Yes Status: Acute (9) S/P panniculectomy Current Visit: Yes Status: Acute Hospital Course: POSTOPERATIVE DIAGNOSES: 1. Morbid obesity due to excess calories. 2. Body mass index of 75 to 43.6 3. Osteoarthritis of the knees. 4. Osteoarthritis of the hips. 5. Osteoarthritis of the lower back. 6. Obstructive sleep apnea. 7. Hypertensive heart disease. 8. Hyperlipidemia 9. Diabetes type 2, insulin-dependent 10. Panniculitis. 11. Status post massive weight loss, 225 pounds. 12. Iron deficiency anemia 13. Status post sleeve gastrectomy. 14. Central adiposity 15. Lipohypertrophy COURSE: Moustapha Dawkins is a 57-year-old male who comes in with long-standing morbid obesity. He had a sleeve gastrectomy April 03, 2016 in [place], [place]. His highest weight was 529 pounds. His lowest weight was 287 pounds. He now comes in 307 pounds from 309 pounds, 2 months ago. He has gained 20 pounds in the last 1.5 years out. At height of 5 feet 10.5 inches, his ideal body weight is 173 pounds. His highest weight was 529 pounds. He comes in 307 pounds. His body mass index was 75.0 down to 43.8. He is 134 pounds overweight. His percent excess weight loss is 62%. He has personally lost 222 pounds. He reports medically refractory panniculitis. Given his clinical symptoms, including massive weight loss, he elected for surgical intervention with a panniculectomy. Benefits and risks of the procedure including bleeding, infection, risk of flap failure, abdominal wall seromas, chronic pain were described at length. Informed consent was obtained. Postprocedure, the patient's iron panel was repeated consistent with severe iron deficiency anemia. Iron infusions were given. He was also started on Flomax for underlying history of benign prostatic hyperplasia with straining. Prior to discharge, he responded to Flomax. He was tolerating diet. His diet was adjusted to a high protein low carb diet. His discharge pain medication adjusted from tramadol to [place] for adequate post operative pain management. Procedures: OPERATION: 1. Panniculectomy, 35.1 pounds. ANESTHESIA: General ESTIMATED BLOOD LOSS: 500 mL SPECIMENS REMOVED: Pannus 35.1 pounds. COMPLICATIONS: None. CONDITION: Stable. DRAINS: Two #19 Jose Raul drains below abdominal flap extending through the pubis. OPERATIVE FINDINGS: 1. Pannus weighing 35.1 pounds, excised. Patient Condition at Discharge: Stable Plan - Discharge Summary Discharge Rx Participant: Yes New Discharge Prescriptions: New HYDROcodone/APAP 5-325MG [[place] 5-325] 1 tab PO Q4HR PRN 3 Days #18 tab PRN Reason: Pain Tamsulosin [Flomax] 0.4 mg PO DAILY #7 cap Continue metFORMIN HCL [Glucophage] 500 mg PO BID Ergocalciferol (Vitamin D2) [Vitamin D2] 100,000 unit PO MOTH Multivitamin [Men's Multi-Vitamin] 2 tab PO DAILY Atorvastatin [Lipitor] 20 mg PO HS Ferrous Sulfate [Iron (65 MG Elemental)] 325 mg PO DAILY Cholecalciferol [Vitamin D3] 400 unit PO DAILY Cyanocobalamin (Vitamin B-12) [Vitamin B-12] 1,000 mcg PO DAILY Insulin Aspart [NovoLOG Flexpen] 4 units SQ BID@1200,1800 Insulin Glargine,Hum.rec.anlog [Basaglar Kwikpen U-100] 28 unit SQ QAM Discontinued traMADol HCL [Ultram] 50 mg PO Q8H PRN PRN Reason: Pain Discharge Medication List Atorvastatin [Lipitor] 20 mg PO HS 07/04/17 [History] Ergocalciferol (Vitamin D2) [Vitamin D2] 100,000 unit PO MOTH 07/04/17 [History] Multivitamin [Men's Multi-Vitamin] 2 tab PO DAILY 07/04/17 [History] metFORMIN HCL [Glucophage] 500 mg PO BID 07/04/17 [History] Cholecalciferol [Vitamin D3] 400 unit PO DAILY 08/28/17 [History] Cyanocobalamin (Vitamin B-12) [Vitamin B-12] 1,000 mcg PO DAILY 08/28/17 [ History] Ferrous Sulfate [Iron (65 MG Elemental)] 325 mg PO DAILY 08/28/17 [History] Insulin Aspart [NovoLOG Flexpen] 4 units SQ BID@1200,1800 10/17/17 [History] Insulin Glargine,Hum.rec.anlog [Basaglar Kwikpen U-100] 28 unit SQ QAM 10/17/17 [History] HYDROcodone/APAP 5-325MG [[place] 5-325] 1 tab PO Q4HR PRN 3 Days #18 tab [Rx] Tamsulosin [Flomax] 0.4 mg PO DAILY #7 cap 10/30/17 [Rx] Follow up Appointment(s)/Referral(s): [facility],. [NON-STAFF] - 11/01/17 10:00 am Patient Instructions/Handouts: [facility] Drain Care (DC), Panniculectomy ( GEN) Activity/Diet/Wound Care/Special Instructions: [facility] - [phone]. No lifting over 4 pounds in 4 weeks. NO BATH TUB SOAKS. No shower. No stretching or twisting. Sleep in a recliner. DO NOT REMOVE DRESSINGS. DO NOT REMOVE BINDER. Keep record of OSBALDO outputs daily. Discharge Disposition: HOME SELF-CARE
[2017-10-30] MEDS: SODIUM CHLORIDE 0.9% 1,000 ML IV SCH (11:52)
== END 2017-10-30 12:00 | disposition home or self-care (01) | DRG 607 ==
LOC: 2ORMAIN 09:22 → 3SUR 17:25
PROVIDERS: ADMIT Surgery Plastic and Reconstructive Surgery; ATTEND Surgery Plastic and Reconstructive Surgery
PROC: 0HB7XZZ Excision of Abdomen Skin, External Approach (ICD-10-PCS; principal; 2017-10-28 12:15)
DX: M79.3 Panniculitis, unspecified (principal); K42.0 Umbilical hernia with obstruction, without gangrene; Z68.41 Body mass index [BMI] 40.0-44.9, adult; D50.9 Iron deficiency anemia, unspecified; E11.9 Type 2 diabetes mellitus without complications; E66.01 Morbid (severe) obesity due to excess calories; E78.5 Hyperlipidemia, unspecified; E88.1 Lipodystrophy, not elsewhere classified; G47.33 Obstructive sleep apnea (adult) (pediatric); I11.9 Hypertensive heart disease without heart failure; M16.0 Bilateral primary osteoarthritis of hip; M17.0 Bilateral primary osteoarthritis of knee; M47.9 Spondylosis, unspecified; N40.1 Benign prostatic hyperplasia with lower urinary tract symptoms; Z79.4 Long term (current) use of insulin; Z79.899 Other long term (current) drug therapy; Z83.3 Family history of diabetes mellitus; Z98.84 Bariatric surgery status
CPT/HCPCS: 80048; 82728; 83540; 83550; 85027; 94760

== ENCOUNTER → 2017-11-06 | Outpatient (CLI) | payer OTHER ==
[2017-11-06 13:45] VITALS: BP 135/64; PULSE 85; RESP 16; TEMP 97.7; BMI 39.5
--- NOTE | 2017-11-06 13:47 | P.PN ---
Subjective Progress Note Date: 11/06/17 DATE OF SERVICE: 11/06/2017 CHIEF COMPLAINT: Status post panniculectomy HISTORY OF PRESENT ILLNESS: Moustapha Dawkins is a 57-year-old male who had a sleeve gastrectomy April 03, 2016 in [place], [place]. His highest weight was 529 pounds. He now comes in 309 pounds. At height of 5 feet 10.5 inches, his ideal body weight is 173 pounds. His body mass index was 75.0 down to 39.7. His percent excess weight loss is 70%. Approximately 40 pounds of pannus was removed. He reports no increased pain. He has his changed binder. He is ambulating. His protein intake is less than 50 grams daily. PHYSICAL EXAM: VITAL SIGNS: Height 5 foot 10.5 inches, weight 279 pounds. BMI 39.5 Vital Signs Temp 97.7 F 11/06/17 13:40 Pulse 85 11/06/17 13:40 Resp 11/06/17 13:40 BP 135/64 11/06/17 13:40 Pulse Ox GENERAL: Well-developed in no acute distress. HEENT: No scleral icterus. Extraocular movements grossly intact. Hears conversational speech. No nasal drainage. NECK: Supple without lymphadenopathy. CHEST: Nonlabored respirations with equal bilateral excursions. CARDIOVASCULAR: Regular rate and regular rhythm. Distal 2+ pulses. ABDOMEN: Tape removed. Dressing is changed around the drains. Drains are serosanguinous. Incision is well approximated and no infection. MUSCULOSKELETAL: No clubbing, cyanosis. Gross strength 5/5 distal lower extremities. 1+ pre-tibial pitting edema. NEURO: No focal or lateralizing signs. Cranial nerves 2 through 12 grossly within normal limits. PSYCH: Appropriate affect. Alert and oriented to person, place and time. SKIN: Good skin turgor. Well perfused. ASSESSMENT: 1. Morbid obesity. 2. Body mass index of 75, initial. 3. Status post sleeve gastrectomy 4. Status post panniculectomy PLAN: 1. Dressing changed. 2. Plan for follow up in 1 week 3. Protein intake over 90 g advised. Objective - Vital Signs Vital signs: Vital Signs Temp 97.7 F 11/06/17 13:40 Pulse 85 11/06/17 13:40 Resp 16 11/06/17 13:40 BP 135/64 11/06/17 13:40 Pulse Ox Intake & Output 11/05/17 11/06/17 11/06/17 18:59 06:59 18:59 Weight 126.722 kg
== END | disposition home or self-care (01) ==
LOC: BARWHC3 12:30
PROVIDERS: ATTEND Surgery Plastic and Reconstructive Surgery
DX: Z09 Encounter for follow-up examination after completed treatment for conditions other than malignant neoplasm (principal); E66.01 Morbid (severe) obesity due to excess calories; R63.4 Abnormal weight loss; Z98.84 Bariatric surgery status; Z98.890 Other specified postprocedural states; Z68.39 Body mass index [BMI] 39.0-39.9, adult
CPT/HCPCS: 99211

== ENCOUNTER → 2017-11-13 | Outpatient (CLI) | payer OTHER ==
--- NOTE | 2017-11-13 13:55 | P.PN ---
Subjective Progress Note Date: 11/13/17 HPI: Patient reports mild pain along the right lower quadrant. No fevers or chills. OSBALDO drains were stripped. ABDOMEN: OSBALDO drains stripped. Right drain of 230 mL. Left drain of 130 mL. PLAN: 1. Follow up in 1 week. 2. All dressings changed.
[2017-11-13 14:20] VITALS: BP 126/74; PULSE 94; TEMP 98; BMI 40.4
== END | disposition home or self-care (01) ==
LOC: BARWHC3 12:32
PROVIDERS: ATTEND Surgery Plastic and Reconstructive Surgery
DX: R10.31 Right lower quadrant pain (principal)
CPT/HCPCS: 99212

== ENCOUNTER → 2017-11-21 | Outpatient (CLI) | payer OTHER ==
[2017-11-21 12:44] VITALS: BP 154/68; PULSE 82; TEMP 98.6; BMI 38.5
--- NOTE | 2017-11-21 17:06 | P.PN ---
Subjective Progress Note Date: 11/21/17 HPI: Patient is status post panniculectomy. Weight gain of at least 11 pounds from his index operation. Pain along the right lower abdomen improved. No reports of fevers or chills. Blood sugars average under 150. He is ambulating. No reports of drainage along the incisions. No drainage out of his right OSBALDO. PLAN: 1. Recommend Keflex for muscularis of the skin 2. OSBALDO drain discontinued at bedside, right side. New dressings placed. 3. Abdominal binder repositioned. 4. Follow-up next week. Objective - Vital Signs Vital signs: Vital Signs Temp 98.6 F 11/21/17 12:42 Pulse 82 11/21/17 12:42 Resp BP 154/68 11/21/17 12:42 Pulse Ox Intake & Output 11/20/17 11/21/17 11/21/17 18:59 06:59 18:59 Weight 123.468 kg
== END | disposition home or self-care (01) ==
LOC: BARWHC3 11:24
PROVIDERS: ATTEND Surgery Plastic and Reconstructive Surgery
DX: Z48.817 Encounter for surgical aftercare following surgery on the skin and subcutaneous tissue (principal); Z98.890 Other specified postprocedural states
CPT/HCPCS: 99212

== ENCOUNTER → 2017-11-27 | Outpatient (CLI) | payer OTHER ==
[2017-11-27 13:18] VITALS: BP 140/65; PULSE 72; RESP 14; TEMP 97.6; BMI 40.8
--- NOTE | 2017-11-27 13:38 | P.PN ---
Subjective Progress Note Date: 11/27/17 DATE OF SERVICE: 11/27/2017 CHIEF COMPLAINT: Status post panniculectomy HISTORY OF PRESENT ILLNESS: Moustapha Dawkins is a 57-year-old male who had a sleeve gastrectomy April 03, 2016 in [place], [place]. He is status post panniculectomy 10/28/2017. His highest weight was 529 pounds. At height of 5 feet 10.5 inches, his ideal body weight is 173 pounds. His body mass index was 75.0. Approximately 40 pounds of pannus was removed. Today he comes in weighing 288 pounds from 272 pounds 1 week ago. He has gained 17 pounds. Total weight loss 241 pounds. Percent excess weight loss 68%. Patient is status post panniculectomy. He is 1 month out from his panniculectomy. No fevers or chills. His OSBALDO was torn recently near the bulb. PHYSICAL EXAM: VITAL SIGNS: Height 5 foot 10.5 inches, weight 288 pounds. BMI 40.9 Vital Signs Temp 97.6 F 11/27/17 13:14 Pulse 72 11/27/17 13:14 Resp 14 11/27/17 13:14 BP 140/65 11/27/17 13:14 Pulse Ox GENERAL: Well-developed in no acute distress. HEENT: No scleral icterus. Extraocular movements grossly intact. Hears conversational speech. No nasal drainage. NECK: Supple without lymphadenopathy. CHEST: Nonlabored respirations with equal bilateral excursions. CARDIOVASCULAR: Regular rate and regular rhythm. Distal 2+ pulses. ABDOMEN: Cellulitis resolved. No signs of infection. OSBALDO adjusted length and functioning. Dressing changed. MUSCULOSKELETAL: No clubbing, cyanosis. Gross strength 5/5 distal lower extremities. NEURO: No focal or lateralizing signs. Cranial nerves 2 through 12 grossly within normal limits. PSYCH: Appropriate affect. Alert and oriented to person, place and time. SKIN: Good skin turgor. Well perfused. ASSESSMENT: 1. Morbid obesity. 2. Body mass index of 75, initial to 40.9 3. Status post sleeve gastrectomy 4. Status post panniculectomy PLAN: 1. Output from Osbaldo less than 40 mL 2. Plan for OSBALDO removal next week. Objective - Vital Signs Vital signs: Vital Signs Temp 97.6 F 11/27/17 13:14 Pulse 72 11/27/17 13:14 Resp 14 11/27/17 13:14 BP 140/65 11/27/17 13:14 Pulse Ox Intake & Output 11/26/17 11/27/17 11/27/17 18:59 06:59 18:59 Weight 131.088 kg
== END | disposition home or self-care (01) ==
LOC: BARWHC3 12:35
PROVIDERS: ATTEND Surgery Plastic and Reconstructive Surgery
DX: Z48.817 Encounter for surgical aftercare following surgery on the skin and subcutaneous tissue (principal); E66.01 Morbid (severe) obesity due to excess calories; Z68.41 Body mass index [BMI] 40.0-44.9, adult; Z98.890 Other specified postprocedural states; Z98.84 Bariatric surgery status
CPT/HCPCS: 99212

== ENCOUNTER → 2017-12-04 | Outpatient (CLI) | payer OTHER ==
--- NOTE | 2017-12-04 13:19 | P.PN ---
Subjective Progress Note Date: 12/04/17 DATE OF SERVICE: 12/04/2017 CHIEF COMPLAINT: Status post panniculectomy HISTORY OF PRESENT ILLNESS: Moustapha Dawkins is a 57-year-old male who had a sleeve gastrectomy April 03, 2016 in [place], [place]. He is status post panniculectomy 10/28/2017. His highest weight was 529 pounds. At height of 5 feet 10.5 inches, his ideal body weight is 173 pounds. His body mass index was 75.0. Approximately 40 pounds of pannus was removed. Today he comes in weighing 293 pounds from 288 pounds 1 week ago. He has gained 5 pounds. Total weight loss 236 pounds. Percent excess weight loss 66% . Patient is status post panniculectomy. He is over 1 month out from his panniculectomy. No fevers or chills. JPs are still 30 daily. PHYSICAL EXAM: VITAL SIGNS: Height 5 foot 10.5 inches, weight 293 pounds. BMI 41.5 Vital Signs Temp 97.9 F 12/04/17 13:00 Pulse 75 12/04/17 13:00 Resp 16 12/04/17 13:00 BP 143/63 12/04/17 13:00 Pulse Ox GENERAL: Well-developed in no acute distress. HEENT: No scleral icterus. Extraocular movements grossly intact. Hears conversational speech. No nasal drainage. NECK: Supple without lymphadenopathy. CHEST: Nonlabored respirations with equal bilateral excursions. CARDIOVASCULAR: Regular rate and regular rhythm. Distal 2+ pulses. ABDOMEN: No cellulitis. Dressing changed. OSBALDO stripped. MUSCULOSKELETAL: No clubbing, cyanosis. Gross strength 5/5 distal lower extremities. NEURO: No focal or lateralizing signs. Cranial nerves 2 through 12 grossly within normal limits. PSYCH: Appropriate affect. Alert and oriented to person, place and time. SKIN: Good skin turgor. Well perfused. ASSESSMENT: 1. Morbid obesity. 2. Body mass index of 75, initial to 41.5 3. Status post sleeve gastrectomy 4. Status post panniculectomy PLAN: 1. Continue OSBALDO drain 2. Re-assess next week.
[2017-12-04 17:40] VITALS: BP 143/63; PULSE 75; RESP 16; TEMP 97.9; BMI 41.5
== END | disposition home or self-care (01) ==
LOC: BARWHC3 12:21
PROVIDERS: ATTEND Surgery Plastic and Reconstructive Surgery
DX: Z48.817 Encounter for surgical aftercare following surgery on the skin and subcutaneous tissue (principal); E66.01 Morbid (severe) obesity due to excess calories; R63.4 Abnormal weight loss; Z68.41 Body mass index [BMI] 40.0-44.9, adult; Z98.84 Bariatric surgery status; Z98.890 Other specified postprocedural states
CPT/HCPCS: 99212

== ENCOUNTER → 2017-12-25 | Outpatient (CLI) | payer OTHER ==
--- NOTE | 2017-12-25 13:54 | P.PN ---
Subjective Progress Note Date: 12/25/17 HPI: He reports no fevers or chills. OSBALDO is now less than 20 mL daily. He has gained 18 pounds since his panniculectomy from 280 pounds to 298 pounds. ABDOMEN: OSBALDO drain discontinued at bedside with serosanguinous fluid. PLAN: 1. He was warned about fluid accumulation. 2. Strict weight loss of 20 pounds advised with 2 week protein diet.
[2017-12-25 14:06] VITALS: BP 147/84; PULSE 87; TEMP 98.2; BMI 42.1
== END | disposition home or self-care (01) ==
LOC: BARWHC3 13:29
PROVIDERS: ATTEND Surgery Plastic and Reconstructive Surgery
DX: Z48.817 Encounter for surgical aftercare following surgery on the skin and subcutaneous tissue (principal); R63.5 Abnormal weight gain; Z98.890 Other specified postprocedural states
CPT/HCPCS: 99212